=== PATIENT | female | born 1960 | race Asian ===

== ENCOUNTER 2016-11-28 06:09 | Day surgery (SDC) | payer BC ==
[2016-11-28] MEDS ORDERED: LACTATED RINGERS 1,000 ML IV ONE (07:06)
[2016-11-28] MEDS ORDERED: fentaNYL 100 MCG/2 ML VIAL IVP ONE (07:39)
[2016-11-28] MEDS ORDERED: MIDAZOLAM 2 MG/2 ML VIAL IVP ONE (07:39)
== END 2016-11-28 06:10 | disposition home or self-care (01) ==
PROC: 0DJD8ZZ Inspection of Lower Intestinal Tract, Via Natural or Artificial Opening Endoscopic (ICD-10-PCS; principal; 2016-11-28 07:30)
DX: Z12.11 Encounter for screening for malignant neoplasm of colon (principal); K64.4 Residual hemorrhoidal skin tags; K57.30 Diverticulosis of large intestine without perforation or abscess without bleeding; K64.8 Other hemorrhoids; E11.9 Type 2 diabetes mellitus without complications; I10 Essential (primary) hypertension; G47.30 Sleep apnea, unspecified; Z80.3 Family history of malignant neoplasm of breast; Z82.49 Family history of ischemic heart disease and other diseases of the circulatory system; Z90.710 Acquired absence of both cervix and uterus
CPT/HCPCS: 45378; J7120

== ENCOUNTER 2017-10-06 11:15 | Outpatient (CLI) | payer OTHER | END 2017-10-06 11:16 | disposition home or self-care (01) | LOC: SC 11:15 | PROVIDERS: ATTEND Internal Medicine Pulmonary Disease | DX: G47.30 Sleep apnea, unspecified (principal); G47.10 Hypersomnia, unspecified; R06.83 Snoring; G47.8 Other sleep disorders | CPT/HCPCS: 99203; 99212 ==

== ENCOUNTER 2017-12-22 11:45 | Outpatient (CLI) | payer OTHER | END 2017-12-22 11:46 | LOC: LAB.WCP 11:45 | PROVIDERS: ATTEND Physician Assistant | DX: N30.00 Acute cystitis without hematuria (principal) | CPT/HCPCS: 87086; 87181 ==

== ENCOUNTER 2017-12-26 21:38 | Outpatient (CLI) | payer OTHER | END 2017-12-26 21:39 | disposition home or self-care (01) | LOC: SC 21:38 | PROVIDERS: ATTEND Internal Medicine Pulmonary Disease | DX: G47.33 Obstructive sleep apnea (adult) (pediatric) (principal); G47.61 Periodic limb movement disorder | CPT/HCPCS: 95810 ==

== ENCOUNTER 2018-01-12 15:13 | Outpatient (CLI) | payer OTHER | END 2018-01-12 15:14 | disposition home or self-care (01) | LOC: SC 15:13 | PROVIDERS: ATTEND Internal Medicine Pulmonary Disease | DX: G47.33 Obstructive sleep apnea (adult) (pediatric) (principal) | CPT/HCPCS: 99212; 99213 ==

== ENCOUNTER 2018-05-28 10:19 | Outpatient (CLI) | payer OTHER | END 2018-05-28 10:20 | disposition home or self-care (01) | LOC: SC 10:19 | PROVIDERS: ATTEND Nurse Practitioner Family | DX: G47.33 Obstructive sleep apnea (adult) (pediatric) (principal) | CPT/HCPCS: 99212; 99214 ==

== ENCOUNTER 2019-09-29 08:00 | Outpatient (CLI) | payer OTHER ==
[2019-09-29 12:10] LABS: BASOPHILS # (AUTO) 0.1 10^3/uL (0.0-0.1); BASOPHILS % (AUTO) 0.7 %; EOSINOPHILS # (AUTO) 0.3 10^3/uL (0.0-0.7); EOSINOPHILS % (AUTO) 3.7 %; LYMPHOCYTES # (AUTO) 2.3 10^3/uL (1.5-3.5); LYMPHOCYTES % (AUTO) 25.8 %; MEAN CORPUSCULAR HEMOGLOBIN 27.2 pg (27.0-31.0); MEAN CORPUSCULAR HGB CONC 30.5 g/dL (32.0-36.0); MEAN CORPUSCULAR VOLUME 89.1 fL (81.0-99.0); MEAN PLATELET VOLUME 10.1 fL (7.9-10.8); MONOCYTES # (AUTO) 0.6 10^3/uL (0.0-1.0); MONOCYTES % (AUTO) 6.9 %; NEUTROPHILS # (AUTO) 5.5 10^3/uL (1.5-6.6); NEUTROPHILS % (AUTO) 62.6 %; PLT - PLATELET COUNT 344 10^3/uL (130-450); RED BLOOD COUNT 5.52 10^6/uL (4.20-5.40); WHITE BLOOD COUNT 8.9 x10^3/uL (4.8-10.8)
[2019-09-29 12:32] LABS: ALBUMIN 4.2 g/dL (3.2-5.5); ALKALINE PHOSPHATASE 87 IU/L (42-121); ALT ALANINE AMINOTRANSFERASE 36 IU/L (10-60); AST ASPARTATE AMINOTRANSFERASE 26 IU/L (10-42); BILIRUBIN,TOTAL 0.5 mg/dL (0.2-1.0); BUN - BLOOD UREA NITROGEN 21 mg/dL (6-20); CALCIUM 9.2 mg/dL (8.5-10.3); CARBON DIOXIDE - CO2 24 mmol/L (21-32); CHLORIDE 105 mmol/L (101-111); CHOL/HDL RATIO 3.7 (<4.4); CHOLESTEROL 230 mg/dL; CREATININE 0.6 mg/dL (0.4-1.0); GFR - MDRD 103 (>89); GLUCOSE 106 mg/dL (70-100); HDL CHOLESTEROL 62 mg/dL; LDL CHOLESTEROL,CALCULATED 144 mg/dL; LDL/HDL RATIO 2.3 (<4.4); SODIUM 139 mmol/L (135-145); TOTAL PROTEIN 8.3 g/dL (6.7-8.2); VLDL CHOLESTEROL 24 mg/dL
[2019-09-29 12:51] LABS: HB2 TOTAL 15.6 g/dL; HEMOGLOBIN A1C 0.73 g/dL; HEMOGLOBIN A1C % 6.4 % (4.6-6.2)
== END 2019-09-29 23:59 | disposition home or self-care (01) ==
LOC: LAB.WCP 08:00
PROVIDERS: ATTEND Nurse Practitioner Family
DX: E78.5 Hyperlipidemia, unspecified (principal); I10 Essential (primary) hypertension; R73.9 Hyperglycemia, unspecified
CPT/HCPCS: 36415; 80053; 80061; 83036; 83721; 84443; 85025

== ENCOUNTER 2019-12-28 08:07 | Outpatient (CLI) | payer OTHER ==
[2019-12-28 14:10] LABS: HB2 TOTAL 14.4 g/dL; HEMOGLOBIN A1C 0.62 g/dL; HEMOGLOBIN A1C % 6.1 % (4.6-6.2)
[2019-12-28 14:17] LABS: ALKALINE PHOSPHATASE 82 IU/L (42-121); ALT ALANINE AMINOTRANSFERASE 43 IU/L (10-60); AST ASPARTATE AMINOTRANSFERASE 26 IU/L (10-42); BILIRUBIN,TOTAL 0.8 mg/dL (0.2-1.0); BUN - BLOOD UREA NITROGEN 23 mg/dL (6-20); CALCIUM 9.1 mg/dL (8.5-10.3); CARBON DIOXIDE - CO2 23 mmol/L (21-32); CHLORIDE 109 mmol/L (101-111); CHOL/HDL RATIO 3.6 (<4.4); CHOLESTEROL 235 mg/dL; CREATININE 0.6 mg/dL (0.4-1.0); GLUCOSE 117 mg/dL (70-100); HDL CHOLESTEROL 65 mg/dL; LDL CHOLESTEROL,CALCULATED 139 mg/dL; LDL/HDL RATIO 2.1 (<4.4); SODIUM 141 mmol/L (135-145); TOTAL PROTEIN 7.9 g/dL (6.7-8.2); VLDL CHOLESTEROL 31 mg/dL
== END 2019-12-28 23:59 | disposition home or self-care (01) ==
LOC: LAB.WCP 08:07
PROVIDERS: ATTEND Nurse Practitioner Family
DX: E78.5 Hyperlipidemia, unspecified (principal); R73.03 Prediabetes
CPT/HCPCS: 36415; 80053; 80061; 83036; 83721

== ENCOUNTER 2020-07-18 08:25 | Outpatient (CLI) | payer OTHER ==
[2020-07-18 12:05] LABS: CALCIUM 9.4 mg/dL (8.5-10.3); CREATININE 0.6 mg/dL (0.4-1.0)
[2020-07-18 14:11] LABS: HEMOGLOBIN A1c% 6.2 % (4.27-6.07)
== END 2020-07-18 08:26 | disposition home or self-care (01) ==
LOC: LAB.N 08:25
PROVIDERS: ATTEND Nurse Practitioner Family
DX: R73.03 Prediabetes (principal)
CPT/HCPCS: 36415; 80048; 83036

== ENCOUNTER 2021-01-15 08:00 | Outpatient (CLI) | payer OTHER ==
[2021-01-15 12:01] LABS: BASOPHILS # (AUTO) 0.1 10^3/uL (0.0-0.1); EOSINOPHILS # (AUTO) 0.3 10^3/uL (0.0-0.7); EOSINOPHILS % (AUTO) 3.9 %; HCT - HEMATOCRIT 44.4 % (37.0-47.0); LYMPHOCYTES % (AUTO) 26.1 %; MEAN CORPUSCULAR HEMOGLOBIN 28.3 pg (27.0-31.0); MEAN CORPUSCULAR HGB CONC 31.5 g/dL (32.0-36.0); MEAN CORPUSCULAR VOLUME 89.9 fL (81.0-99.0); MEAN PLATELET VOLUME 9.9 fL (7.9-10.8); MONOCYTES # (AUTO) 0.5 10^3/uL (0.0-1.0); MONOCYTES % (AUTO) 6.4 %; NEUTROPHILS # (AUTO) 4.8 10^3/uL (1.5-6.6); NEUTROPHILS % (AUTO) 62.3 %; PLT - PLATELET COUNT 304 10^3/uL (130-450); RED BLOOD COUNT 4.94 10^6/uL (4.20-5.40); RED CELL DISTRIBUTION WIDTH 14.1 % (12.0-15.0); WHITE BLOOD COUNT 7.7 x10^3/uL (4.8-10.8)
[2021-01-15 12:26] LABS: THYROID STIMULATING HORMONE 1.02 uIU/mL (0.34-5.60)
[2021-01-15 12:31] LABS: ESTIMATED AVERAGE GLUCOSE 131 mg/dL (70-100); HEMOGLOBIN A1c% 6.2 % (4.27-6.07)
[2021-01-15 12:32] LABS: ALBUMIN 4.2 g/dL (3.2-5.5); ALBUMIN/GLOBULIN RATIO 1.1 (1.0-2.2); ALKALINE PHOSPHATASE 93 IU/L (42-121); ALT ALANINE AMINOTRANSFERASE 27 IU/L (10-60); AST ASPARTATE AMINOTRANSFERASE 22 IU/L (10-42); BILIRUBIN,TOTAL 0.7 mg/dL (0.2-1.0); BUN - BLOOD UREA NITROGEN 17 mg/dL (6-20); CALCIUM 9.2 mg/dL (8.5-10.3); CARBON DIOXIDE - CO2 26 mmol/L (21-32); CHLORIDE 107 mmol/L (101-111); CHOL/HDL RATIO 3.9 (<4.4); CHOLESTEROL 261 mg/dL; CREATININE 0.6 mg/dL (0.4-1.0); GFR - MDRD 103 (>89); GLUCOSE 105 mg/dL (70-100); HDL CHOLESTEROL 67 mg/dL; LDL CHOLESTEROL,CALCULATED 170 mg/dL; LDL/HDL RATIO 2.5 (<4.4); POTASSIUM 3.8 mmol/L (3.5-5.0); SODIUM 143 mmol/L (135-145); TOTAL PROTEIN 7.9 g/dL (6.7-8.2); TRIGLYCERIDES 120 mg/dL; VLDL CHOLESTEROL 24 mg/dL
== END 2021-01-15 23:59 | disposition home or self-care (01) ==
LOC: LAB.WCP 08:00
PROVIDERS: ATTEND Nurse Practitioner Family
DX: R73.03 Prediabetes (principal); E78.5 Hyperlipidemia, unspecified; I10 Essential (primary) hypertension
CPT/HCPCS: 36415; 80053; 80061; 83036; 83721; 84443; 85025

== ENCOUNTER 2021-06-15 10:38 | Outpatient (CLI) | payer OTHER | END 2021-06-15 23:59 | disposition home or self-care (01) | LOC: LAB.N 10:38 | PROVIDERS: ATTEND Family Medicine | DX: R30.0 Dysuria (principal) | CPT/HCPCS: 87086; 87181 ==

== ENCOUNTER 2021-06-26 10:16 | Outpatient (CLI) | payer OTHER ==
--- NOTE | 2021-06-27 14:11 | Mammography Report ---
BILATERAL DIGITAL SCREENING MAMMOGRAM 3D/2D: 06/26/2021 CLINICAL: Routine screening. Comparison is made to exams dated: 04/01/2016 mammogram, 01/14/2014 mammogram, and 02/24/2015 mammogram - [facility]. The tissue of both breasts is heterogeneously dense. This may lower the sensitivity of mammography. There is a new round asymmetry in the right breast at 1 o'clock posterior depth. There is a new oval focal asymmetry in the left breast at 11 o'clock anterior depth. No other significant masses or calcifications are seen in either breast. IMPRESSION: INCOMPLETE: NEEDS ADDITIONAL IMAGING EVALUATION The new round asymmetry in the right breast at 1 o'clock posterior depth is indeterminate. A diagnos tic mammogram and ultrasound is recommended. The new oval focal asymmetry in the left breast at 11 o'clock anterior depth is indeterminate. A sue gnostic mammogram and ultrasound is recommended. This exam was interpreted at Station ID: [id number]. NOTE: For mammograms, a report in lay terms will be sent to the patient. Approximately 15% of breast malignancies will not be visualized mammographically. In the management of a palpable breast mass, a negative mammogram must not discourage biopsy of a clinically suspicious lesion. Electronically Signed By: Anastasiya alberts/:06/26/2021 12:05:49 ACR BI-RADS Category 0: Incomplete 3340F PARENCHYMAL PATTERN: (D) - The breast(s) demonstrate(s) heterogeneously dense fibroglandular parenchy ma. BI-RADS CATEGORY: (0) - 0 Mammo and [place] [id number] Immediate follow-up LATERALITY: (B)
== END 2021-06-26 10:17 | disposition home or self-care (01) ==
LOC: DI.N 10:16
DX: Z12.31 Encounter for screening mammogram for malignant neoplasm of breast (principal); R92.8 Other abnormal and inconclusive findings on diagnostic imaging of breast

== ENCOUNTER 2021-08-14 12:33 | Outpatient (CLI) | payer OTHER ==
--- NOTE | 2021-08-15 16:06 | Ultrasound Report ---
LIMITED ULTRASOUND OF LEFT BREAST AND AXILLA: 08/14/2021 CLINICAL: Patient returns today to evaluate an asymmetry in the left breast. Comparison is made to exams dated: 08/14/2021 mammogram, 06/26/2021 mammogram, 04/01/2016 mammogram, mammogram, and 01/14/2014 mammogram - [facility]. Color flow and real-time ultrasound of the left breast 11 o'clock, and axilla regions were performed. Mendez scale images of the real-time examination were reviewed. There is a 0.9 cm x 0.8 cm x 0.5 cm irregular mass in the left breast at 11 o'clock anterior depth 2 cm from the nipple. This correlates with mammography findings. Color flow imaging demonstrates that there is an adjacent vascularity. No significant abnormalities were seen sonographically in the left axilla. IMPRESSION: SUSPICIOUS OF MALIGNANCY The 0.9 cm x 0.8 cm x 0.5 cm irregular mass in the left breast is at a moderate suspicion for maligna ncy. An ultrasound guided biopsy is recommended. Exam findings were discussed with the patient by Dr. Rojas. This exam was interpreted at Station ID: [id number]. Electronically Signed By: Deep Garcia M.D. slc/:08/14/2021 14:27:08 Ultrasound BI-RADS: 4b Moderate suspicion of malignancy BI-RADS CATEGORY: (4b) - Mod Susp None [id number] Immediate follow-up LATERALITY: ()
--- NOTE | 2021-08-15 16:06 | Mammography Report ---
BILATERAL DIGITAL DIAGNOSTIC MAMMOGRAM 3D/2D: 08/14/2021 CLINICAL: Patient returns today to evaluate a focal asymmetry in the right breast. Patient returns to day to evaluate a focal asymmetry in the left breast. Comparison is made to exams dated: 06/26/2021 mammogram, 04/01/2016 mammogram, 02/24/2015 mammogram, a nd 01/14/2014 mammogram - [facility]. There are scattered fibroglandular elements i n both breasts. There is a new 0.7 cm round asymmetry in the right breast at 1 o'clock posterior depth. There is a new 0.5 cm oval focal asymmetry in the left breast at 11 o'clock anterior depth. No other significant masses or calcifications are seen in either breast. IMPRESSION: INCOMPLETE: NEEDS ADDITIONAL IMAGING EVALUATION The 0.7 cm round asymmetry in the right breast at 1 o'clock posterior depth resembles a cyst and is i ndeterminate. The 0.5 cm oval focal asymmetry in the left breast at 11 o'clock anterior depth is indeterminate. A targeted ultrasound is recommended and will immediately follow. This exam was interpreted at Station ID: [id number]. NOTE: For mammograms, a report in lay terms will be sent to the patient. Approximately 15% of breast malignancies will not be visualized mammographically. In the management of a palpable breast mass, a negative mammogram must not discourage biopsy of a clinically suspicious lesion. Electronically Signed By: Deep Garcia M.D. slc/:08/14/2021 13:43:09 ACR BI-RADS Category 0: Incomplete 3340F PARENCHYMAL PATTERN: (A) - The breast(s) demonstrate(s) scattered fibroglandular densities. BI-RADS CATEGORY: (0) - 0 Ultrasound [id number] Immediate follow-up LATERALITY: (B)
--- NOTE | 2021-08-15 16:06 | Ultrasound Report ---
LIMITED ULTRASOUND OF RIGHT BREAST AND AXILLA: 08/14/2021 CLINICAL: Patient returns today to evaluate a focal asymmetry in the right breast. Comparison is made to exams dated: 08/14/2021 mammogram, 06/26/2021 mammogram, 04/01/2016 mammogram, mammogram, and 01/14/2014 mammogram - [facility]. Color flow and real-time ultrasound of the right breast 1 o'clock, and axilla regions were performed. Mendez scale images of the real-time examination were reviewed. There is a 0.8 cm x 0.7 cm x 0.4 cm oval mass with a circumscribed margin in the right breast at 1 o' clock middle depth 5 cm from the nipple. This oval mass is hypoechoic. This correlates with mammogr aphy findings. Color flow imaging demonstrates that there is an adjacent vascularity. No significant abnormalities were seen sonographically in the right axilla. IMPRESSION: SUSPICIOUS OF MALIGNANCY The 0.8 cm x 0.7 cm x 0.4 cm oval mass in the right breast is at a low suspicion for malignancy. An ultrasound guided biopsy is recommended. Exam findings were discussed with the patient. After reviewing the mammograms again, Dr. Garcia would like to proceed with biopsy rather than imaging follow-up as the mass appears new. This exam was interpreted at Station ID: [id number]. Electronically Signed By: Deep Garcia M.D. slc/:08/14/2021 18:03:14 Ultrasound BI-RADS: 4a Low suspicion for malignancy BI-RADS CATEGORY: (4a) - Low Susp None [id number] Immediate follow-up LATERALITY: ()
== END 2021-08-14 12:34 | disposition home or self-care (01) ==
LOC: DI 12:33
PROVIDERS: ATTEND Nurse Practitioner Family
DX: R92.8 Other abnormal and inconclusive findings on diagnostic imaging of breast (principal)

== ENCOUNTER 2021-08-22 09:37 | Outpatient (CLI) | payer OTHER ==
[2021-08-22 12:44] LABS: BASOPHILS # (AUTO) 0.1 10^3/uL (0.0-0.1); BASOPHILS % (AUTO) 0.9 %; EOSINOPHILS # (AUTO) 0.4 10^3/uL (0.0-0.7); EOSINOPHILS % (AUTO) 4.4 %; HCT - HEMATOCRIT 44.3 % (37.0-47.0); HGB - HEMOGLOBIN 14.1 g/dL (12.0-16.0); LYMPHOCYTES # (AUTO) 1.9 10^3/uL (1.5-3.5); LYMPHOCYTES % (AUTO) 23.4 %; MEAN CORPUSCULAR HEMOGLOBIN 28.7 pg (27.0-31.0); MEAN CORPUSCULAR HGB CONC 31.8 g/dL (32.0-36.0); MEAN PLATELET VOLUME 9.9 fL (7.9-10.8); MONOCYTES # (AUTO) 0.5 10^3/uL (0.0-1.0); NEUTROPHILS # (AUTO) 5.4 10^3/uL (1.5-6.6); NEUTROPHILS % (AUTO) 64.9 %; PLT - PLATELET COUNT 317 10^3/uL (130-450); RED BLOOD COUNT 4.92 10^6/uL (4.20-5.40); WHITE BLOOD COUNT 8.2 x10^3/uL (4.8-10.8)
[2021-08-22 12:50] LABS: BILIRUBIN,URINE NEGATIVE (NEGATIVE); GLUCOSE, URINE (UA) NEGATIVE (NEGATIVE); KETONES,URINE (UA) NEGATIVE (NEGATIVE); LEUKOCYTE ESTERASE, URINE TRACE (NEGATIVE); NITRITE,URINE NEGATIVE (NEGATIVE); OCCULT BLOOD,URINE SMALL (NEGATIVE); PROTEIN,URINE NEGATIVE (NEGATIVE); UROBILINOGEN,URINE 0.2 (NORMAL) E.U./dL (NORMAL)
[2021-08-22 13:02] LABS: ALBUMIN 3.9 g/dL (3.2-5.5); ALBUMIN/GLOBULIN RATIO 0.9 (1.0-2.2); BILIRUBIN,TOTAL 0.6 mg/dL (0.2-1.0); CREATININE 0.6 mg/dL (0.4-1.0); POTASSIUM 3.8 mmol/L (3.5-5.0); TOTAL PROTEIN 8.3 g/dL (6.7-8.2)
[2021-08-22 13:09] LABS: BACTERIA,URINE Rare /HPF (None Seen); CLARITY,URINE CLEAR (CLEAR); RBC,URINE 0-5 /HPF (0-5); SQUAMOUS EPITHELIAL CELL,UR MOD Squamous (<= Few); THYROID STIMULATING HORMONE 1.13 uIU/mL (0.34-5.60)
[2021-08-22 13:10] LABS: CRYSTALS,URINE 6-10 Calcium Oxalate /LPF
[2021-08-23 17:42] LABS: ESTIMATED AVERAGE GLUCOSE 137 mg/dL (70-100); HEMOGLOBIN A1c% 6.4 % (4.27-6.07)
== END 2021-08-22 23:59 | disposition home or self-care (01) ==
LOC: LAB.WCP 09:37
PROVIDERS: ATTEND Nurse Practitioner
DX: R53.83 Other fatigue (principal); R73.03 Prediabetes
CPT/HCPCS: 36415; 80053; 81001; 83036; 84443; 85025; 87086

== ENCOUNTER 2021-10-24 08:00 | Outpatient (CLI) | payer OTHER | END 2021-10-24 23:59 | LOC: LAB.N 08:00 | PROVIDERS: ATTEND Nurse Practitioner | DX: J32.8 Other chronic sinusitis (principal); Z20.822 Contact with and (suspected) exposure to COVID-19 ==

== ENCOUNTER 2022-06-27 00:42 | Emergency (ER) | payer OTHER ==
[2022-06-27] MEDS ORDERED: IPRATROPIUM/ALBUTEROL 3 ML NEB INH STA (01:08)
[2022-06-27 01:28] LABS: BASOPHILS # (AUTO) 0.1 10^3/uL (0.0-0.1); BASOPHILS % (AUTO) 0.5 %; EOSINOPHILS # (AUTO) 0.3 10^3/uL (0.0-0.7); HGB - HEMOGLOBIN 12.6 g/dL (12.0-16.0); LYMPHOCYTES # (AUTO) 1.2 10^3/uL (1.5-3.5); LYMPHOCYTES % (AUTO) 8.6 %; MEAN CORPUSCULAR HEMOGLOBIN 28.3 pg (27.0-31.0); MEAN CORPUSCULAR HGB CONC 31.5 g/dL (32.0-36.0); MEAN CORPUSCULAR VOLUME 89.9 fL (81.0-99.0); MEAN PLATELET VOLUME 9.4 fL (7.9-10.8); MONOCYTES # (AUTO) 1.2 10^3/uL (0.0-1.0); MONOCYTES % (AUTO) 8.6 %; NEUTROPHILS # (AUTO) 10.7 10^3/uL (1.5-6.6); NEUTROPHILS % (AUTO) 79.7 %; PLT - PLATELET COUNT 281 10^3/uL (130-450); RED BLOOD COUNT 4.45 10^6/uL (4.20-5.40); RED CELL DISTRIBUTION WIDTH 13.6 % (12.0-15.0); WHITE BLOOD COUNT 13.5 x10^3/uL (4.8-10.8)
[2022-06-27 01:41] LABS: ALBUMIN 3.8 g/dL (3.2-5.5); BILIRUBIN,TOTAL 0.2 mg/dL (0.2-1.0); CALCIUM 8.9 mg/dL (8.5-10.3); CREATININE 0.9 mg/dL (0.4-1.0); POTASSIUM 3.7 mmol/L (3.5-5.0); TOTAL PROTEIN 7.8 g/dL (6.7-8.2)
--- NOTE | 2022-06-27 01:45 | ED Physician Documentation ---
PD HPI DYSPNEA - Stated complaint Stated Complaint: SOA/COUGH/HIGH BP - Chief complaint Chief Complaint: Resp - History obtained from History obtained from: Patient - Additional information Additional information: Patient is a 61-year-old female with a history of hypertension presenting for evaluation of feeling short of breath, productive cough and nasal congestion for least 10 days. She was seen at the walk-in clinic on June 15 and reports having a swabs that she believes were for COVID and RSV which were both negative. She was given prescriptions for albuterol and steroids and her sympto ms have not improved. The instructions for the albuterol were to use twice a day. She is also recently had elevated blood pressure readings. When she was at the walk-in clinic her pressures were in the 230s. They did want her to be evaluated in the emergency department but she declined at that time. Tonight she also noted that her blood pressures have been above 200. She denies feeling chest pain. Her shortness of breath is triggered by her cough.Her cough is productive of light yellow sputum. She denies blood. She denies leg swelling or pain. No known fevers. Her is also ill with URI symptoms. No vomiting or diarrhea. She is on metoprolol and losartan and reports being compliant with her medications. 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 - Present Medications Home Medications: Ambulatory Orders Medication Instructions Recorded Confirmed Metoprolol Succinate 50 mg PO DAILY 11/28/16 06/27/22 Albuterol Sulf [Ventolin Hfa 1 - 2 puffs INH Q4HR PRN #1 each 06/27/22 Inhaler] Albuterol Sulfate [Proair 90 mcg INH PRN PRN 06/27/22 06/27/22 Digihaler] Benzonatate [Tessalon] 200 mg PO QID PRN #20 cap 06/27/22 Losartan Potassium 25 mg PO DAILY 06/27/22 06/27/22 Losartan [Cozaar] 50 mg PO DAILY #30 tablet 06/27/22 Sertraline [Zoloft] 100 mg PO DAILY 06/27/22 06/27/22 methylPREDNISolone [Medrol Dose 4 mg PO DAILY 06/27/22 06/27/22 Pack] - Allergies Allergies/Adverse Reactions: Allergies Allergy/AdvReac Type Severity Reaction Status Date / Time No Known Drug Allergies Allergy Verified 06/27/22 01:00 PD ED PE NORMAL - General General: Alert and oriented X 3, No acute distress, Well developed/nourished - HEENT HEENT: Atraumatic, Moist mucous membranes - Neck Neck: Supple, no meningeal sign - Cardiac Cardiac: RRR, Strong equal pulses - Respiratory Respiratory: No respiratory distress, Other (Cough triggered by taking deep breaths, diminished breath sounds at the bases; Mild wheeze) - Abdomen Abdomen: Soft, Non tender - Derm Derm: Warm and dry - Extremities Extremities: No edema, No calf tenderness / cord - Neuro Neuro: Normal speech Results - Vitals Vitals: Vital Signs - 24 hr 06/27/22 06/27/22 06/27/22 00:50 01:25 01:59 Temperature 36.4 C L Heart Rate 89 84 82 Respiratory 20 22 22 Rate Blood Pressure 251/107 H 225/93 H O2 Saturation 98 98 06/27/22 06/27/22 06/27/22 02:08 02:13 02:17 Temperature Heart Rate 90 85 83 Respiratory 24 24 24 Rate Blood Pressure 257/103 H 183/84 H 194/84 H O2 Saturation 96 96 96 06/27/22 06/27/22 06/27/22 02:22 02:39 02:55 Temperature 37.6 C Heart Rate 83 82 83 Respiratory 24 21 19 Rate Blood Pressure 195/81 H 191/86 H 180/80 H O2 Saturation 96 97 97 Oxygen O2 Source Room air - EKG (time done) 0118 Rate: Rate (enter#) (82) Rhythm: NSR Navarro: Normal Ischemia: No: ST elevation c/w ischemia - Labs Labs: Laboratory Tests 06/27/22 06/27/22 06/27/22 00:15 01:15 01:18 WBC 13.5 H RBC 4.45 Hgb 12.6 Hct 40.0 MCV 89.9 MCH 28.3 MCHC 31.5 L RDW 13.6 Plt Count 281 MPV 9.4 Neut # (Auto) 10.7 H Lymph # (Auto) 1.2 L [place] # (Auto) 1.2 H Eos # (Auto) 0.3 Baso # (Auto) 0.1 Absolute Nucleated RBC 0.00 Nucleated RBC % 0.0 Sodium Potassium Chloride Carbon Dioxide Anion Gap BUN Creatinine Estimated GFR (MDRD) Glucose Calcium Total Bilirubin AST ALT Alkaline Phosphatase B-Natriuretic Peptide 63 Total Protein Albumin Globulin Albumin/Globulin Ratio Nasal Adenovirus (PCR) NOT DETECTED Nasal B. parapertussis DNA (PCR) NOT DETECTED Nasal Coronavir 229E PCR NOT DETECTED Nasal Coronavir HKU1 PCR NOT DETECTED Nasal Coronavir NL63 PCR NOT DETECTED Nasal Coronavir OC43 PCR NOT DETECTED Nasal Enterovir/Rhinovir PCR NOT DETECTED Nasal Influenza B PCR NOT DETECTED Nasal Influenza A PCR NOT DETECTED Nasal Parainfluen 1 PCR NOT DETECTED Nasal Parainfluen 2 PCR NOT DETECTED Nasal Parainfluen 3 PCR NOT DETECTED Nasal Parainfluen 4 PCR NOT DETECTED Nasal RSV (PCR) NOT DETECTED Nasal B.pertussis DNA PCR NOT DETECTED Nasal C.pneumoniae (PCR) NOT DETECTED Yinka Human Metapneumo PCR NOT DETECTED Nasal M.pneumoniae (PCR) NOT DETECTED Nasal SARS-CoV-2 (PCR) DETECTED A 06/27/22 01:18 WBC RBC Hgb Hct MCV MCH MCHC RDW Plt Count MPV Neut # (Auto) Lymph # (Auto) [place] # (Auto) Eos # (Auto) Baso # (Auto) Absolute Nucleated RBC Nucleated RBC % Sodium 142 Potassium 3.7 Chloride 104 Carbon Dioxide 26 Anion Gap 12.0 BUN 23 H Creatinine 0.9 Estimated GFR (MDRD) 64 L Glucose 146 H Calcium 8.9 Total Bilirubin 0.2 AST 22 ALT 20 Alkaline Phosphatase 86 B-Natriuretic Peptide Total Protein 7.8 Albumin 3.8 Globulin 4.0 Albumin/Globulin Ratio 1.0 Nasal Adenovirus (PCR) Nasal B. parapertussis DNA (PCR) Nasal Coronavir 229E PCR Nasal Coronavir HKU1 PCR Nasal Coronavir NL63 PCR Nasal Coronavir OC43 PCR Nasal Enterovir/Rhinovir PCR Nasal Influenza B PCR Nasal Influenza A PCR Nasal Parainfluen 1 PCR Nasal Parainfluen 2 PCR Nasal Parainfluen 3 PCR Nasal Parainfluen 4 PCR Nasal RSV (PCR) Nasal B.pertussis DNA PCR Nasal C.pneumoniae (PCR) Yinka Human Metapneumo PCR Nasal M.pneumoniae (PCR) Nasal SARS-CoV-2 (PCR) PD MEDICAL DECISION MAKING - ED course Complexity details: reviewed results, re-evaluated patient, d/w patient, d/w family ED course: Patient with shortness of breath and URI symptoms along with uncontrolled hypertension.Patient does have diminished breath sounds and mild wheezing on initial exam which improved after neb treatment. Her labs were reviewed and EKG is a sinus rhythm. No chest pain to suggest ACS Or aortic dissection. Patient's respiratory panel is positive for COVID-19. I believe this is the primary cause for her symptoms today. She clinically does not appear to be in fluid overload. No pneumonia seen on x-ray. However her blood pressure has been significantly elevated over the last several weeks.She did have improvement with 1 dose of labetalol. I will also increase her losartan at home. Patient was advised on need for follow-up with primary care doctor for recheck of her blood pressure. She is advised on concerning symptoms to return for. Departure - Departure Disposition: Home, Self Care Clinical Impression: COVID-19, Uncontrolled hypertension Condition: Good Instructions: ED Hypertension Conf Out Of Control, ED Viral Syndrome Prescriptions: Albuterol Sulf [Ventolin Hfa Inhaler] 1 - 2 puffs INH Q4HR PRN #1 each PRN Reason: Shortness Of Air/Wheezing Losartan [Cozaar] 50 mg PO DAILY #30 tablet Benzonatate [Tessalon] 200 mg PO QID PRN #20 cap PRN Reason: Cough Comments: Your blood pressure has been significantly elevated. At this time I recommend increasing your losartan from 25 mg to 50 mg daily. I would also recommend you making a follow-up appointment with your primary care doctor in the next week for blood pressure recheck. If you are not able to Get an appointment there then I would consider the walk-in clinic. You have also tested positive for COVID-19.It is unclear as to exactly when your symptoms started but I would recommend quarantine for the next 5 days. I have sent a refill of albuterol, cough medication and a new prescription for losartan to [facility] in [place] that is it is the only pharmacy in the area open on . Please return to the emergency department with any concerning symptoms. Forms: Activity restrictions Discharge Date/Time: 06/27/22 02:55
[2022-06-27] MEDS ORDERED: LABETALOL 20 MG/4 ML SYRINGE IVP STA (02:01)
--- NOTE | 2022-06-27 02:05 | XRAY Report ---
PROCEDURE: Chest 1 View X-Ray INDICATIONS: SOA TECHNIQUE: One view of the chest was acquired. COMPARISON: None. FINDINGS: Surgical changes and devices: None. Lungs and pleura: There is pulmonary vascular prominence consistent with pulmonary edema. No pleural effusions or pneumothorax. Mediastinum: Mediastinal contours appear normal. Heart size is enlarged. Bones and chest wall: No suspicious bony lesions. Overlying soft tissues appear unremarkable. IMPRESSION: 1. Pulmonary edema and cardiomegaly compatible with congestive heart failure. Reviewed by: Dimas Aguilar MD on 06/27/2022 2:03 AM PST Approved by: Dimas Aguilar MD on 06/27/2022 2:[address] [facility] Station ID: [id number]
[2022-06-27 02:20] LABS: CORONAVIRUS 229E-RESP PCR NOT DETECTED; CORONAVIRUS HKU1-RESP PCR NOT DETECTED; CORONAVIRUS NL63-RESP PCR NOT DETECTED; CORONAVIRUS OC43-RESP PCR NOT DETECTED
[2022-06-27 02:21] LABS: B. PARAPERTUSSIS- RESP PCR PAN NOT DETECTED; B. PERTUSSIS- RESP PCR PANEL NOT DETECTED; C. PNEUMONIAE- RESP PCR PANEL NOT DETECTED; HUMAN METAPNEUMOVIRUS NOT DETECTED; INFLUENZA A- RESP PCR PANEL NOT DETECTED; INFLUENZA B - RESP PCR PANEL NOT DETECTED; M. PNEUMONIAE- RESP PCR PANEL NOT DETECTED; PARAINFLUENZA VIRUS 1 NOT DETECTED; PARAINFLUENZA VIRUS 2 NOT DETECTED; PARAINFLUENZA VIRUS 3 NOT DETECTED; PARAINFLUENZA VIRUS 4 NOT DETECTED; RHINOVIRUS/ENTEROVIRUS NOT DETECTED; RSV- RESP PCR PANEL NOT DETECTED; SARS-CoV-2 -RESP PCR PANEL DETECTED
[2022-06-27] MEDS ORDERED: BENZONATATE 100 MG CAPSULE PO STA (02:47)
[2022-06-27 02:56] VITALS: BP 180/80
== END 2022-06-27 02:55 | disposition home or self-care (01) ==
LOC: ED 00:42
DX: U07.1 COVID-19 (principal); I10 Essential (primary) hypertension
CPT/HCPCS: 36415; 71045; 80053; 83880; 85025; 87633; 93005; 94640; 96374; 99284; A9270

== ENCOUNTER 2022-07-05 04:50 | Emergency (ER) | payer OTHER ==
--- NOTE | 2022-07-05 05:17 | ED Physician Documentation ---
History of Present Illness - Stated complaint Stated Complaint: COUGH, R RIB PX - Chief complaint Chief Complaint: Resp - History obtained from History obtained from: Patient - History of Present Illness Timing: Today Pain level now: 8 Improved by: rest Worsened by: movement, deep inspiration, but most severe exacerbation is with coughing - Additonal information Additional information: seen in walk-in clinic 06/15 for URI symptoms, had negative COVID test and patient thinks she also was told negative for RSV. She was prescribed steroids and albuterol MDI. She was T+R from this ED 06/27 for ongoing symptoms (cough, chest congestion, myalgias, headache) and was COVID positive . She was again prescribed an albuterol MDI as well as tessalon perles and cozaar (secondary c/o of uncontrolled HTN). Tonight she presents for sudden onset right sided chest pain, onset when she coughed and associated with a popping sensation, has point-tenderness right anterolateral chest wall since then. Review of Systems Constitutional: denies: Fever, Chills, Sweats Cardiac: reports: Chest pain / pressure (chest wall pain). denies: Palpitations Respiratory: reports: Cough. 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: Hysterectomy - Present Medications Home Medications: Ambulatory Orders Medication Instructions Recorded Confirmed Metoprolol Succinate 50 mg PO DAILY 11/28/16 06/27/22 Albuterol Sulf [Ventolin Hfa 1 - 2 puffs INH Q4HR PRN #1 each 06/27/22 Inhaler] Albuterol Sulfate [Proair 90 mcg INH PRN PRN 06/27/22 06/27/22 Digihaler] Benzonatate [Tessalon] 200 mg PO QID PRN #20 cap 06/27/22 Losartan Potassium 25 mg PO DAILY 06/27/22 06/27/22 Losartan [Cozaar] 50 mg PO DAILY #30 tablet 06/27/22 Sertraline [Zoloft] 100 mg PO DAILY 06/27/22 06/27/22 methylPREDNISolone [Medrol Dose 4 mg PO DAILY 06/27/22 06/27/22 Pack] oxyCODONE [Roxicodone] 5 - 10 mg PO Q6H PRN #20 tablet 07/05/22 - Allergies Allergies/Adverse Reactions: Allergies Allergy/AdvReac Type Severity Reaction Status Date / Time No Known Drug Allergies Allergy Verified 06/27/22 01:00 PD ED PE NORMAL - Vitals Vital signs reviewed: Yes - General General: Alert and oriented X 3, No acute distress (NAD at rest but obvious painful distress with coughing, less so (but noticably) with movement involving thorax as well as with deep inspiration), Well developed/nourished - Cardiac Cardiac: RRR, No murmur - Respiratory Respiratory: No respiratory distress, Clear bilaterally - Abdomen Abdomen: Soft, Non tender PD ED PE EXPANDED - Cardiac Cardiac: Chest wall TTP (right anterolateral chest wall TTP without brusing or obvious deformity) Results - Vitals Vitals: Vital Signs - 24 hr 07/05/22 07/05/22 04:53 08:07 Temperature 36.7 C Heart Rate 63 56 L Respiratory 16 18 Rate Blood Pressure 188/90 H 195/95 H O2 Saturation 98 97 Oxygen O2 Source Room air - Rads (name of study) right ribs xrays with PA chest Radiology: Prelim report reviewed, See rad report PD MEDICAL DECISION MAKING - ED course Complexity details: reviewed results, re-evaluated patient, considered d ifferential, d/w patient ED course: rib/chest xrays show fracture of right 8th rib, no other evidence of fracture, no pneumothorax. she is given 5mg oxycodone for pain and cough suppression; on reevaluation, she says this has brought little relief and thus given second dose 5mg PO oxycodone. Results reviewed with patient, rx for oxycodone e-prescribed. Return precautions reviewed as well I am prescribing a short course of short-acting opioid pain medication for this patient. 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 I have discussed that the opioids are for short term therapy only, and will not be refilled from the ED Departure - Departure Disposition: 01 Home, Self Care Clinical Impression: Right rib fracture Qualifiers: Encounter type: initial encounter Rib fracture type: single rib Fracture type: closed Qualified Code(s): S22.31XA - Fracture of one rib, right side, initial encounter for closed fracture Condition: Good Instructions: ED Fx Rib Follow-Up: Donte Dominguez MD [Primary Care Provider] - Within 1 week Prescriptions: oxyCODONE [Roxicodone] 5 - 10 mg PO Q6H PRN #20 tablet PRN Reason: Pain Comments: The xrays show a fracture of the right eighth rib. A prescription for oxycodone (narcotic pain medication) has been electronically submitted to [facility] pharmacy in [place]. This medication should help with the pain and it also has a cough-suppressant property. You can also take lhbd-cng-ohmvgxc medications to help with the symptoms. Guaifenesin is an expectorant (loosens phelgm, making it easier to cough up the mucous in your chest) and dextromethorphan is a cough suppressant. Many products have this combination such as Mucinex DM. You can also take acetaminophen (Tylenol) or ibuprofen (Advil, Motrin) for the pain in addition to the oxycodone. I am prescribing a short course of narcotic pain medication for you. These are potentially dangerous and addictive medications that should be used carefully. These medications may constipate you. Take an urui-wbw-koozzno stool softener (docusate) twice daily with plenty of water while taking these medications. If you go 24 hours without a bowel movement, take uang-lcp-avzwsgr miralax, per package instructions. Do not drink or drive while taking these medications. If you received narcotic or sedating medications while in the emergency department, do not drive for 24 hours. Store this medication in a safe, secure place and out of reach of children. It is a violation of federal law to give or sell this medication to another person or to use in a manner other than prescribed. The ED will not refill narcotic prescriptions, including prescriptions lost or stolen. To dispose of unwanted medications: 1. [facility] at [address] in [place] has a medication drop box. They accept prescription medications (in pill form) Friday through Friday 9:00 a.m. to 5:00 p.m. 2. The [facility] [employer] accepts prescription medications (in pill form only) for disposal year round. Call for more information. 3. Contact the [facility] for the next [facility] sponsored prescription drug collection event. , [phone], or [phone]; Forms: Activity restrictions Discharge Date/Time: 07/05/22 08:08
[2022-07-05] MEDS ORDERED: oxyCODONE 5 MG TABLET PO STA ×2 (05:36→07:27)
[2022-07-05 08:08] VITALS: BP 195/95
--- NOTE | 2022-07-05 08:21 | XRAY Report ---
PROCEDURE: Ribs w/PA Chest RT INDICATIONS: right chest wall pain associated with coughing TECHNIQUE: 2 views of the right ribs were acquired, along with a single view chest. COMPARISON: Chest radiograph dated 06/27/2022 FINDINGS: Surgical changes and devices: None. Bones and chest wall: There is suggestion of subtle cortical irregularity involving posterior lateral right eighth rib and may indicate a subtle minimally displaced fracture in this area. No other fract ure is seen. No suspicious bony lesions. Overlying soft tissues appear unremarkable. Lungs and pleura: No pleural effusions or pneumothorax. Lungs appear clear. Mediastinum: Mediastinal contours appear normal. Heart size is enlarged. IMPRESSION: Suggestion of a subtle minimally displaced right posterior lateral eighth rib fracture. No acute card iopulmonary pathology. No discrepancies. Reviewed by: Geovanni Galeana MD on 07/05/2022 8:19 AM PST Approved by: Geovanni Galeana MD on 07/05/2022 8:19 AM PST Station ID: [id number]
== END 2022-07-05 08:08 | disposition home or self-care (01) ==
LOC: ED 04:50
DX: S22.31XA Fracture of one rib, right side, initial encounter for closed fracture (principal); X58.XXXA Exposure to other specified factors, initial encounter; Y93.89 Activity, other specified
CPT/HCPCS: 71101; 99283; A9270

== ENCOUNTER 2022-07-10 17:37 | Outpatient (CLI) | payer OTHER ==
--- NOTE | 2022-07-11 10:50 | XRAY Report ---
PROCEDURE: Chest 2 View X-Ray INDICATIONS: COUGH TECHNIQUE: 2 views of the chest were acquired. COMPARISON: 06/27/2022 FINDINGS: Surgical changes and devices: None. Lungs and pleura: Small right pleural effusion has developed since the prior study. No dense consolid ations. There is thickening of the oblique fissures. Diffuse interstitial thickening is also present though less extensive compared to prior. Mild perihilar bronchial wall thickening. Mediastinum: Mild cardiomegaly. Stable aortic contour. Prominent right hilar region, chronic. Bones and chest wall: No suspicious bony abnormalities. Soft tissues appear unremarkable. IMPRESSION: 1. Small right pleural effusion may be result of residual pulmonary edema as was present previously. 2. Diffuse interstitial thickening as well as bronchial wall thickening may indicate bronchitis and/o r residual interstitial edema. 3. Stable cardiomegaly. Reviewed by: Anastasiya Brown MD on 07/11/2022 10:48 AM PST Approved by: Anastasiya Brown MD on 07/11/2022 10:48 AM PST Station ID: [id number]
--- NOTE | 2022-07-11 10:54 | XRAY Report ---
PROCEDURE: Ribs w/PA Chest RT INDICATIONS: COUGH TECHNIQUE: 3 views of the right ribs were acquired, along with a single view chest. COMPARISON: 07/05/2022 FINDINGS: Surgical changes and devices: None. Bones and chest wall: Mildly displaced right eighth posterior rib fracture is better seen on the curr ent study, suggested previously.. No suspicious bony lesions. Overlying soft tissues appear unremar kable. Lungs and pleura: Small right pleural effusion, diffuse interstitial prominence, bilateral perihilar bronchial wall thickening. This. Mediastinum: Mediastinal contours appear stable. Heart size is mildly enlarged. IMPRESSION: 1. Confirmation of right posterior eighth rib fracture, now mildly displaced. 2. Small right pleural effusion, interstitial prominence and bronchial wall thickening. This may channing radha interstitial edema, bronchitis, or the effusion may be result of rib fracture. Reviewed by: Anastasiya Brown MD on 07/11/2022 10:52 AM PST Approved by: Anastasiya Brown MD on 07/11/2022 10:52 AM PST Station ID: [id number]
== END 2022-07-10 23:59 | disposition home or self-care (01) ==
LOC: DI.N 17:37
PROVIDERS: ATTEND Physician Assistant
DX: S22.31XA Fracture of one rib, right side, initial encounter for closed fracture (principal); J90 Pleural effusion, not elsewhere classified; R91.8 Other nonspecific abnormal finding of lung field

== ENCOUNTER 2023-06-11 01:37 | Emergency (ER) | payer OTHER ==
--- NOTE | 2023-06-11 02:07 | ED Physician Documentation ---
History of Present Illness - Stated complaint Stated Complaint: NAUSEA/BACK/LEG PX - Chief complaint Chief Complaint: Back Pain - History obtained from History obtained from: Patient - Additonal information Additional information: HPI from patient. Patient complains of right lower quadrant abdominal pain, right flank pain, and midline to right lower back pain. Initially, the the pain was located in the mid to right lower back starting approximately 1 week ago, gradual onset and without an inciting event. She denies injury. She saw her primary care provider last week for this pain. It sounds like she is describing having lumbar x-rays performed (she says it was a chest x-ray but she is pointing to her lower back, and her complaint at the time of evaluation by her PMD was low back pain); patient says that there was nothing remarkable in these x-rays. Primary care provider prescribed her tramadol for the pain, but this is not providing adequate relief. Over the past several days, the pain has spread to involve her right flank and right lower abdomen. She also has noticed, over the last 1 to 2 days, paresthesias ("[id number]"), episodically, of her bilateral lower extremities. She denies weakness. She denies urinary incontinence, bowel incontinence. She has not had any significant back pain in the past. She is also complaining of nausea but no vomiting. Review of Systems Constitutional: denies: Fever, Chills, Fatigue, Sweats Cardiac: reports: Reviewed and negative Respiratory: reports: Reviewed and negative GI: reports: Abdominal Pain, Nausea. denies: Abdominal Swelling, Vomiting, Constipation, Diarrhea : denies: Dysuria Musculoskeletal: reports: Back pain. denies: Neck pain, Extremity pain, Pain with weight bearing Neurologic: reports: Numbness. 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 - Present Medications Home Medications: Ambulatory Orders Medication Instructions Recorded Confirmed Metoprolol Succinate 50 mg PO DAILY 11/28/16 06/27/22 Albuterol Sulf [Ventolin Hfa 1 - 2 puffs INH Q4HR PRN #1 each 06/27/22 Inhaler] Albuterol Sulfate [Proair 90 mcg INH PRN PRN 06/27/22 06/27/22 Digihaler] Benzonatate [Tessalon] 200 mg PO QID PRN #20 cap 06/27/22 Losartan Potassium 25 mg PO DAILY 06/27/22 06/27/22 Losartan [Cozaar] 50 mg PO DAILY #30 tablet 06/27/22 Sertraline [Zoloft] 100 mg PO DAILY 06/27/22 06/27/22 methylPREDNISolone [Medrol Dose 4 mg PO DAILY 06/27/22 06/27/22 Pack] oxyCODONE [Roxicodone] 5 - 10 mg PO Q6H PRN #20 tablet 07/05/22 Ondansetron Odt [Zofran Odt] 4 mg TL Q6H PRN #20 tablet 06/11/23 Oxycodone HCl/Acetaminophen 1 - 2 each PO Q6H PRN #20 tablet 06/11/23 [Percocet 5-325 mg Tablet] - Allergies Allergies/Adverse Reactions: Allergies Allergy/AdvReac Type Severity Reaction Status Date / Time No Known Drug Allergies Allergy Verified 06/11/23 05:19 - Social History Does the pt smoke?: No Smoking Status: Never smoker Does the pt drink ETOH?: No Does the pt have substance abuse?: No - Immunizations Immunizations are current?: Yes PD ED PE NORMAL - Vitals Vital signs reviewed: Yes - General General: Alert and oriented X 3, No acute distress, Well developed/nourished - Cardiac Cardiac: RRR, No murmur - Respiratory Respiratory: No respiratory distress, Clear bilaterally - Abdomen Abdomen: Soft, Non distended, Other (mild TTP RLQ and right flank without rebound or guarding) - Back Back: No CVA TTP, No spinal TTP - Derm Derm: No rash - Extremities Extremities: No edema - Neuro Neuro: Alert and oriented X 3, No motor deficit (5/5 bilateral dorsi/plantarflexion, 5/5 hip flexion ), No sensory deficit (LTS intact and equal BLE), Other (2+/4 bilateral patellar DTR without clonus) Results - Vitals Vitals: Vital Signs - 24 hr 06/11/23 06/11/23 06/11/23 01:58 03:00 04:00 Temperature 35.9 C L Heart Rate 59 L 55 L 52 L Respiratory 18 16 16 Rate Blood Pressure 213/106 H 216/94 H 203/95 H O2 Saturation 96 98 97 06/11/23 06/11/23 06/11/23 05:00 05:30 06:30 Temperature Heart Rate 55 L 56 L 57 L Respiratory 16 16 16 Rate Blood Pressure 209/93 H 178/97 H 178/90 H O2 Saturation 97 95 98 06/11/23 06/11/23 06/11/23 07:00 07:30 08:37 Temperature 36.1 C L 36.0 C L Heart Rate 47 L 48 L 47 L Respiratory 15 16 16 Rate Blood Pressure 143/69 H 128/69 132/67 H O2 Saturation 96 96 96 Oxygen O2 Source Room air - Labs Labs: Laboratory Tests 06/11/23 06/11/23 06/11/23 03:38 03:41 03:41 WBC 9.6 RBC 4.73 Hgb 13.4 Hct 42.9 MCV 90.7 MCH 28.3 MCHC 31.2 L RDW 13.2 Plt Count 290 MPV 9.3 Neut # (Auto) 6.4 Lymph # (Auto) 2.0 [place] # (Auto) 0.7 Eos # (Auto) 0.5 Baso # (Auto) 0.1 Absolute Nucleated RBC 0.00 Nucleated RBC % 0.0 Sodium 138 Potassium 3.2 L Chloride 100 L Carbon Dioxide 30 Anion Gap 8.0 BUN 25 H Creatinine 0.9 Estimated GFR (MDRD) 64 L Glucose 100 Calcium 9.8 Total Bilirubin 0.5 AST 19 ALT 21 Alkaline Phosphatase 57 Total Protein 8.6 Albumin 4.6 Globulin 4.0 Albumin/Globulin Ratio 1.2 Lipase 65 Urine Color YELLOW Urine Clarity CLEAR Urine pH 6.0 Ur Specific [place] 1.015 Urine Protein NEGATIVE Urine Glucose (UA) NEGATIVE Urine Ketones NEGATIVE Urine Occult Blood SMALL H Urine Nitrite NEGATIVE Urine Bilirubin NEGATIVE Urine Urobilinogen 0.2 (NORMAL) Ur Leukocyte Esterase NEGATIVE Urine RBC 0-5 Urine WBC 6-10 H Ur Squamous Epith Cells FEW Squamous Urine Bacteria Rare Ur Microscopic Review INDICATED Urine Culture Comments NOT INDICATED - Rads (name of study) CT A/P with IV contrast Relevant Findings:: Prelim report reviewed, See rad report PD Medical Decision Making - ED course Complexity details: reviewed results, re-evaluated patient, considered differential, d/w patient ED course: There are no concerning findings on CBC, ER abdominal panel. Incidental note is made of mild hypokalemia (potassium 3.2). BUN is 25 with a 0.9 creatinine. UA has small red blood cells on macro, but none on microscopy although 6-10 white blood cells per high-power field are noted on microscopy. CT scan of the abdomen pelvis shows a right UPJ stone measuring 2 cm x 1.1 cm along with right-sided cortical thinning. During her ED stay, she developed severe right flank pain that responded well to 1 mg of IV Dilaudid. She was given a second dose later in her stay for recurrence of the right flank pain. She was also given 50 mg of IV Toradol. Unfortunately, the CT scan also shows, per radiologist, "solid mass arising from the lateral aspect of the left kidney, renal cell carcinoma is the diagnosis of exclusion. This measures 5.3 x 4.2 cm". Incidental note is made of cholelithiasis as well as nonspecific bilateral adrenal nodules and a nonspecific enhancing lesion of the left hepatic lobe that measures 1.4 cm. I discussed these results with the patient and her spouse (in the ED at patient's bedside). I explained that the right-sided kidney stone accounts for her back and flank pain. Given that adequate pain control was achieved with the above medications, she was discharged and I am providing a prescription for Percocet as well as Zofran (electronically submitted to [facility] pharmacy). Included in the discussion, of course, was the finding regarding a left kidney mass and the high suspicion for renal cell carcinoma. I advised her to contact her primary care provider today to inquire about appropriate referral for further investigation of this finding. Return precautions were reviewed. I am prescribing a short course of short-acting opioid pain medication for this patient. 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 I have discussed that the opioids are for short term therapy only, and will not be refilled from the ED. Departure - Departure Disposition: 01 Home, Self Care Clinical Impression: Renal colic on right side, Renal mass, left Condition: Good Instructions: ED Stone Renal W Colic Follow-Up: Yousif Dexter MD [Provider Admit Priv/Credential] - Prescriptions: Oxycodone HCl/Acetaminophen [Percocet 5-325 mg Tablet] 1 - 2 each PO Q6H PRN #20 tablet PRN Reason: pain Ondansetron Odt [Zofran Odt] 4 mg TL Q6H PRN #20 tablet PRN Reason: Nausea / Vomiting Comments: The CT scan of your abdomen pelvis shows a very large kidney stone lodged in the ureter on the right side; the ureter is the conduit from the kidney to the bladder. When kidney stones get stuck in the ureter, they cause the pain that you have been experiencing. As we discussed, this is an exceptionally large stone that will need to be removed by a urologist (it is far too large to pass on its own). Included in these discharge sheets is the contact information for the on-call urologist for [facility]. Contact that office to arrange for next available appointment. To help control the pain in the meantime, I have electronically submitted a prescription for Percocet (opiate/narcotic pain medication) to the [facility] pharmacy in [place]. I also submitted a prescription for ondansetron (anti-nausea medication). Unfortunately, the CT scan also has a very concerning finding: there is a solid mass on your left kidney. This is highly suspicious for renal cell carcinoma (kidney cancer). It is 5.3 cm x 4.2 cm. The diagnosis of cancer cannot be made solely on the basis of a CT scan. You will need follow-up for this finding separate from the urology follow-up for the kidney stone. Contact your primary care provider today to inquire about the referral process to have this finding addressed. I am prescribing a short course of narcotic pain medication for you. These are potentially dangerous and addictive medications that should be used carefully. These medications may constipate you. Take an qadl-[id number]-[id number] stool softener (docusate) twice daily with plenty of water while taking these medications. If you go 24 hours without a bowel movement, take [id number] miralax, per package instructions. Do not drink or drive while taking these medications. If you received narcotic or sedating medications while in the emergency department, do not drive for 24 hours. Store this medication in a safe, secure place and out of reach of children. It is a violation of federal law to give or sell this medication to another person or to use in a manner other than prescribed. The ED will not refill narcotic prescriptions, including prescriptions lost or stolen. To dispose of unwanted medications: 1. [facility] at [address] in [place] has a medication drop box. They accept prescription medications (in pill form) Friday through Friday 9:00 a.m. to 5:00 p.m. 2. The [facility] accepts prescription medications (in pill form only) for disposal year round. Call for more information. 3. Contact the [facility] for the next [facility] sponsored prescription drug collection event. , [phone], or [phone]; Forms: Activity restrictions Discharge Date/Time: 06/11/23 08:39
[2023-06-11] MEDS ORDERED: ONDANSETRON 4 MG/2 ML VIAL IVP STA (02:40)
[2023-06-11] MEDS ORDERED: cloNIDine 0.1 MG TABLET PO STA (02:52)
[2023-06-11 03:56] LABS: BASOPHILS # (AUTO) 0.1 10^3/uL (0.0-0.1); BASOPHILS % (AUTO) 0.7 %; EOSINOPHILS # (AUTO) 0.5 10^3/uL (0.0-0.7); EOSINOPHILS % (AUTO) 5.1 %; HCT - HEMATOCRIT 42.9 % (37.0-47.0); HGB - HEMOGLOBIN 13.4 g/dL (12.0-16.0); LYMPHOCYTES % (AUTO) 20.3 %; MEAN CORPUSCULAR HEMOGLOBIN 28.3 pg (27.0-31.0); MEAN CORPUSCULAR HGB CONC 31.2 g/dL (32.0-36.0); MEAN CORPUSCULAR VOLUME 90.7 fL (81.0-99.0); MEAN PLATELET VOLUME 9.3 fL (7.9-10.8); MONOCYTES # (AUTO) 0.7 10^3/uL (0.0-1.0); MONOCYTES % (AUTO) 7.2 %; NEUTROPHILS # (AUTO) 6.4 10^3/uL (1.5-6.6); NEUTROPHILS % (AUTO) 66.2 %; PLT - PLATELET COUNT 290 10^3/uL (130-450); RED BLOOD COUNT 4.73 10^6/uL (4.20-5.40); RED CELL DISTRIBUTION WIDTH 13.2 % (12.0-15.0); WHITE BLOOD COUNT 9.6 x10^3/uL (4.8-10.8)
[2023-06-11 03:57] LABS: BILIRUBIN,URINE NEGATIVE (NEGATIVE); GLUCOSE, URINE (UA) NEGATIVE (NEGATIVE); KETONES,URINE (UA) NEGATIVE (NEGATIVE); LEUKOCYTE ESTERASE, URINE NEGATIVE (NEGATIVE); NITRITE,URINE NEGATIVE (NEGATIVE); OCCULT BLOOD,URINE SMALL (NEGATIVE); PROTEIN,URINE NEGATIVE (NEGATIVE); UROBILINOGEN,URINE 0.2 (NORMAL) E.U./dL (NORMAL)
[2023-06-11 04:08] LABS: BACTERIA,URINE Rare /HPF (None Seen); CLARITY,URINE CLEAR (CLEAR); RBC,URINE 0-5 /HPF (0-5); SQUAMOUS EPITHELIAL CELL,UR FEW Squamous (<= Few)
[2023-06-11 04:14] LABS: ALBUMIN 4.6 g/dL (3.2-5.5); ALBUMIN/GLOBULIN RATIO 1.2 (1.0-2.2); BILIRUBIN,TOTAL 0.5 mg/dL (0.2-1.0); CALCIUM 9.8 mg/dL (8.5-10.3); CREATININE 0.9 mg/dL (0.6-1.3); POTASSIUM 3.2 mmol/L (3.5-4.5); TOTAL PROTEIN 8.6 g/dL (6.4-8.9)
[2023-06-11] MEDS ORDERED: HYDROmorphone 1 MG/ML CARPUJECT IVP STA ×2 (05:06→06:20)
[2023-06-11] MEDS ORDERED: SODIUM CHLORIDE 0.9% 1,000 ML IV STA (05:06)
[2023-06-11] MEDS ORDERED: KETOROLAC 15 MG/ML VIAL IVP STA (06:20)
[2023-06-11] MEDS ORDERED: iohexoL-300 100 ML VIAL IVP ONE (06:48)
[2023-06-11 07:14] VITALS: O2SAT 96
--- NOTE | 2023-06-11 08:22 | CT Report ---
PROCEDURE: ABDOMEN/PELVIS W INDICATIONS: RLQ/right flank/back pain CONTRAST: Omni 300 100ml TECHNIQUE: After the administration of intravenous contrast, 5 mm thick sections acquired from the diaphragms to the symphysis. 5 mm thick coronal and sagittal reformats were acquired. For radiation dose reducti on, the following was used: automated exposure control, adjustment of mA and/or kV according to sydnie ent size. COMPARISON: Ultrasound 07/09/2014 FINDINGS: Image quality: Excellent. Lung bases and heart: Unremarkable. Liver: Subcentimeter hypoattenuating liver lesions, too small to characterize by CT. Gallbladder and biliary tree: Cholelithiasis. Additional foci adherent to the gallbladder wall fundus , measuring 1.1 cm. Focal adenomyomatosis at the fundus. Spleen: No splenomegaly. Pancreas: No pancreatic ductal dilation. Adrenals: 1 cm right adrenal nodule 0.3 cm left adrenal nodule. Kidneys and ureters: Obstructing 1.1 cm stone right UPJ (830 Houn[address] unit), resulting in severe hy dronephrosis. Additional nonobstructing right-sided nephrolithiasis. 5.2 cm left renal mass along the lateral margin and 1.1 cm mass on the superior margin (series 2, image 24). Bowel and peritoneum: No bowel distension. No pathologic free fluid. Diverticulosis without evidence of diverticulitis. Normal appendix. Lymph nodes: No central or retroperitoneal adenopathy. Vessels: No infrarenal aortic aneurysm. PELVIS Reproductive organs: Unremarkable. Bladder: No abnormal wall thickening, accounting for underdistension. Pelvic lymph nodes: No pelvic adenopathy by size criteria. Bones: No aggressive osseous abnormality. Other: No significant ventral or inguinal hernia. IMPRESSION: Obstructing 1.1 cm stone in the right UVJ, resulting in severe hydronephrosis. Hyperattenuating left-sided renal masses, concerning for renal cell carcinoma. Recommend urology refe rral. Gallstone versus polyp adherent to the wall at the fundus. Recommend nonemergent right upper quadrant ultrasound for further characterization. Bilateral adrenal nodules. Further correlation with MRI or CT is recommended (nonemergent adrenal mas s protocol). Findings are concordant with preliminary interpretation provided by [facility]. Reviewed by: Ricky Escalante on 06/11/2023 8:20 AM [facility] Approved by: Ricky Escalante on 06/11/2023 8:20 AM PST Station ID: [id number]
[2023-06-11 08:45] VITALS: BP 132/67
== END 2023-06-11 08:39 | disposition home or self-care (01) ==
LOC: ED 01:37
DX: N13.2 Hydronephrosis with renal and ureteral calculous obstruction (principal); N28.89 Other specified disorders of kidney and ureter; K80.20 Calculus of gallbladder without cholecystitis without obstruction; E27.8 Other specified disorders of adrenal gland; R93.2 Abnormal findings on diagnostic imaging of liver and biliary tract
CPT/HCPCS: 36415; 74177; 80053; 81001; 83690; 85025; 96374; 96375; 96376; 99284; A9270; J1170; Q9967; 81003; 87086

== ENCOUNTER 2023-07-17 03:29 | Emergency (ER) | payer OTHER ==
[2023-07-17] MEDS ORDERED: MAGNESIUM CITRATE 296 ML BOTTLE PO STA (04:30)
[2023-07-17] MEDS ORDERED: SIMETHICONE CHEW 80 MG TABLET PO STA (04:31)
[2023-07-17] MEDS ORDERED: KETOROLAC 15 MG/ML VIAL IVP STA (04:31)
--- NOTE | 2023-07-17 04:35 | ED Physician Documentation ---
History of Present Illness - Stated complaint Stated Complaint: BACK/LEG/PELVIC PX - Chief complaint Chief Complaint: Abd Pain - History obtained from History obtained from: Patient, Family () - Additonal information Additional information: 62yF presents to the ED with multiple medical complaints. patient has PMH L renal mass and R UPJ stone with R nephrostomy placed on 07/07/23. patient has had good ostomy output since that time. denies fevers. she comes in tonight due to R mid/low back pain, abdominal bloating, and BL LE tingling. patient has had issues with tingling extremities before without explanation. she states she is prediabetic. she states she's been feeling constipated and tried multiple enemas without relief. 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 - Present Medications Home Medications: Ambulatory Orders Medication Instructions Recorded Confirmed Metoprolol Succinate 50 mg PO DAILY 11/28/16 07/17/23 Albuterol Sulf [Ventolin Hfa 1 - 2 puffs INH Q4HR PRN #1 each 06/27/22 Inhaler] Albuterol Sulfate [Proair 90 mcg INH PRN PRN 06/27/22 06/27/22 Digihaler] Benzonatate [Tessalon] 200 mg PO QID PRN #20 cap 06/27/22 Losartan Potassium 25 mg PO DAILY 06/27/22 07/17/23 Losartan [Cozaar] 50 mg PO DAILY #30 tablet 06/27/22 Sertraline [Zoloft] 100 mg PO DAILY 06/27/22 06/27/22 methylPREDNISolone [Medrol Dose 4 mg PO DAILY 06/27/22 06/27/22 Pack] oxyCODONE [Roxicodone] 5 - 10 mg PO Q6H PRN #20 tablet 07/05/22 Ondansetron Odt [Zofran Odt] 4 mg TL Q6H PRN #20 tablet 06/11/23 Oxycodone HCl/Acetaminophen 1 - 2 each PO Q6H PRN #20 tablet 06/11/23 [Percocet 5-325 mg Tablet] Amox/Clav 875/125 [Augmentin 1 tablet PO Q12H 10 Days #20 tablet 07/17/23 875/125 Tab] Sennosides/Docusate Sodium 1 each PO QDAC PRN #30 tablet 07/17/23 [Senna-Docusate Sodium Tablet] hydrOXYzine HCL [Hydroxyzine HCl] 25 mg PO QPM PRN #20 tablet 07/17/23 polyethylene glycoL 3350 [Miralax] 17 gm PO DAILY #15 packet 07/17/23 - Allergies Allergies/Adverse Reactions: Allergies Allergy/AdvReac Type Severity Reaction Status Date / Time No Known Drug Allergies Allergy Verified 06/11/23 05:19 - Social History Does the pt smoke?: No Smoking Status: Never smoker Does the pt drink ETOH?: No Does the pt have substance abuse?: No - Immunizations Immunizations are current?: Yes PD ED PE NORMAL - Vitals Vital signs reviewed: Yes - General General: Alert and oriented X 3, No acute distress, Well developed/nourished - HEENT HEENT: Atraumatic, PERRL, EOMI - Neck Neck: Supple, no meningeal sign - Cardiac Cardiac: RRR - Respiratory Respiratory: No respiratory distress, Clear bilaterally - Abdomen Abdomen: Non tender, Non distended - Rectal Rectal: Other (no stool in the rectal vault on JACKI) - Back Back: Other (R CVA ttp. R nephrostomy clean and in place) - Derm Derm: Normal color, Warm and dry - Extremities Extremities: No deformity - Neuro Neuro: Alert and oriented X 3 Results - Vitals Vitals: Vital Signs - 24 hr 07/17/23 07/17/23 07/17/23 03:35 03:54 05:54 Temperature 37.2 C Heart Rate 88 88 85 Respiratory 16 17 Rate Blood Pressure 174/99 H 175/90 H O2 Saturation 98 96 98 Oxygen O2 Source Room air - Labs Labs: Laboratory Tests 07/17/23 07/17/23 07/17/23 04:58 06:24 06:24 WBC 9.2 RBC 4.59 Hgb 12.9 Hct 40.0 MCV 87.1 MCH 28.1 MCHC 32.3 RDW 14.0 Plt Count 312 MPV 9.6 Neut # (Auto) 6.0 Lymph # (Auto) 2.1 [place] # (Auto) 0.8 Eos # (Auto) 0.2 Baso # (Auto) 0.1 Absolute Nucleated RBC 0.00 Nucleated RBC % 0.0 Sodium 135 Potassium 3.1 L Chloride 97 L Carbon Dioxide 24 Anion Gap 14.0 H BUN 32 H Creatinine 1.1 Estimated GFR (MDRD) 51 L Glucose 119 H Calcium 10.2 Total Bilirubin 0.6 AST 20 ALT 13 Alkaline Phosphatase 35 L Total Protein 7.7 Albumin 4.2 Globulin 3.5 Albumin/Globulin Ratio 1.2 Lipase 117 H Urine Color YELLOW Urine Clarity HAZY Urine pH 5.5 Ur Specific [place] 1.010 Urine Protein 100 H Urine Glucose (UA) NEGATIVE Urine Ketones NEGATIVE Urine Occult Blood LARGE H Urine Nitrite POSITIVE H Urine Bilirubin NEGATIVE Urine Urobilinogen 0.2 (NORMAL) Ur Leukocyte Esterase LARGE H Urine RBC TNTC H Urine WBC >25 H Ur Squamous Epith Cells FEW Squamous Urine Bacteria Many H Ur Microscopic Review INDICATED Urine Culture Comments INDICATED PD Medical Decision Making - ED course ED course: 62yF with R nephrostomy and L renal mass p/w constipation, abdominal and back pain, and BL leg tingling. cbc, abdominal panel, u/a ordered. IV toradol, oral mag citrate and gas X provided with improvement in symptoms. plan to f/u results. d/w Dr. Cho, urology. If otherwise hemodynamically stable and no s/s SIRS or sepsis then treat as complicated UTI. Bactrim or augmentin. Their urology office will f/u cultures. Scheduled for surgery with Dr. Jc Aug 04. She can follow up outpatient urology clinic. Departure - Departure Disposition: 01 Home, Self Care Clinical Impression: Constipation, Abdominal pain, Back pain, Tingling in extremities, UTI (urinary tract infection) Condition: Stable Instructions: ED Constipation Prescriptions: Amox/Clav 875/125 [Augmentin 875/125 Tab] 1 tablet PO Q12H 10 Days #20 tablet hydrOXYzine HCL [Hydroxyzine HCl] 25 mg PO QPM PRN #20 tablet PRN Reason: Insomnia polyethylene glycoL 3350 [Miralax] 17 gm PO DAILY #15 packet Sennosides/Docusate Sodium [Senna-Docusate Sodium Tablet] 1 each PO QDAC PRN #30 tablet PRN Reason: Constipation Comments: You were seen in the emergency department for constipation, back pain, abdominal pain and tingling feet. You have urinary tract infection on urinalysis. Antibiotics and sleep aid atarax (hydroxyzine) were sent electronically to [facility] in [place]. Please follow-up with your urologist and return to the emergency department if you have any new or worsening symptoms or other concerns. Forms: PCP List
[2023-07-17 05:09] LABS: BILIRUBIN,URINE NEGATIVE (NEGATIVE); GLUCOSE, URINE (UA) NEGATIVE (NEGATIVE); KETONES,URINE (UA) NEGATIVE (NEGATIVE); LEUKOCYTE ESTERASE, URINE LARGE (NEGATIVE); NITRITE,URINE POSITIVE (NEGATIVE); OCCULT BLOOD,URINE LARGE (NEGATIVE); PH,URINE 5.5 PH (5.0-7.5); PROTEIN,URINE 100 mg/dL (NEGATIVE); UROBILINOGEN,URINE 0.2 (NORMAL) E.U./dL (NORMAL)
[2023-07-17 05:16] LABS: CLARITY,URINE HAZY (CLEAR)
[2023-07-17 05:32] LABS: BACTERIA,URINE Many /HPF (None Seen); RBC,URINE TNTC /HPF (0-5); SQUAMOUS EPITHELIAL CELL,UR FEW Squamous (<= Few); WBC,URINE >25 /HPF (0-5)
[2023-07-17] MEDS ORDERED: cefTRIAXone 1 GM in SODIUM CHLORIDE 0.9% MINIBAG 100 ML IV STA (05:37)
[2023-07-17] MEDS ORDERED: cefTRIAXone 1 GM VIAL ONE (06:19)
[2023-07-17 06:39] LABS: BASOPHILS # (AUTO) 0.1 10^3/uL (0.0-0.1); BASOPHILS % (AUTO) 1.1 %; EOSINOPHILS # (AUTO) 0.2 10^3/uL (0.0-0.7); EOSINOPHILS % (AUTO) 1.6 %; HGB - HEMOGLOBIN 12.9 g/dL (12.0-16.0); LYMPHOCYTES # (AUTO) 2.1 10^3/uL (1.5-3.5); LYMPHOCYTES % (AUTO) 23.3 %; MEAN CORPUSCULAR HEMOGLOBIN 28.1 pg (27.0-31.0); MEAN CORPUSCULAR HGB CONC 32.3 g/dL (32.0-36.0); MEAN CORPUSCULAR VOLUME 87.1 fL (81.0-99.0); MEAN PLATELET VOLUME 9.6 fL (7.9-10.8); MONOCYTES # (AUTO) 0.8 10^3/uL (0.0-1.0); MONOCYTES % (AUTO) 8.5 %; NEUTROPHILS % (AUTO) 65.3 %; PLT - PLATELET COUNT 312 10^3/uL (130-450); RED BLOOD COUNT 4.59 10^6/uL (4.20-5.40); WHITE BLOOD COUNT 9.2 x10^3/uL (4.8-10.8)
[2023-07-17 07:00] LABS: ALBUMIN 4.2 g/dL (3.2-5.5); ALBUMIN/GLOBULIN RATIO 1.2 (1.0-2.2); BILIRUBIN,TOTAL 0.6 mg/dL (0.2-1.0); CALCIUM 10.2 mg/dL (8.5-10.3); CREATININE 1.1 mg/dL (0.6-1.3); POTASSIUM 3.1 mmol/L (3.5-4.5); TOTAL PROTEIN 7.7 g/dL (6.4-8.9)
[2023-07-17] MEDS ORDERED: POTASSIUM CHLORIDE 20 MEQ/15 ML UDC PO STA (07:03)
[2023-07-17 07:52] VITALS: BP 176/85
[2023-07-17 08:02] VITALS: O2SAT 97
== END 2023-07-17 08:13 | disposition home or self-care (01) ==
LOC: ED 03:29
DX: K59.00 Constipation, unspecified (principal); N39.0 Urinary tract infection, site not specified; R20.2 Paresthesia of skin; I10 Essential (primary) hypertension; E11.9 Type 2 diabetes mellitus without complications; Z79.899 Other long term (current) drug therapy
CPT/HCPCS: 36415; 80053; 81001; 83690; 85025; 87086; 96365; 96375; 99284; A9270; 81003

== ENCOUNTER 2023-12-05 15:21 | Emergency (ER) | payer OTHER ==
[2023-12-05 15:41] VITALS: O2SAT 100
--- NOTE | 2023-12-05 16:10 | ED Physician Documentation ---
History of Present Illness - Stated complaint Stated Complaint: GI,BILAT LEG PX - Chief complaint Chief Complaint: General - History obtained from History obtained from: Patient, Family - History of Present Illness Pain level max: 8 Pain level now: 8 - Additonal information Additional information: 63-year-old female states that she has a history of spinal cord tumor, status postresection approximately 3 months ago at [facility] in [place]. She states that she has had pain in her feet ever since that time. They have placed her on oxycodone for pain control but she does not like to take it because it makes her constipated. She states the main reason she came to the emergency department today is she felt like her Gaston catheter was causing pain 3 days ago and there was a small amount of blood. She is requesting that the catheter be changed. It has been draining normally since then. The blood was not in the urine but rather on the catheter. 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 - Present Medications Home Medications: Ambulatory Orders Medication Instructions Recorded Confirmed Metoprolol Succinate 50 mg PO DAILY 11/28/16 12/05/23 Losartan Potassium 25 mg PO DAILY 06/27/22 12/05/23 Losartan [Cozaar] 50 mg PO DAILY #30 tablet 06/27/22 12/05/23 Sertraline [Zoloft] 100 mg PO DAILY 06/27/22 12/05/23 methylPREDNISolone [Medrol Dose 4 mg PO DAILY 06/27/22 12/05/23 Pack] oxyCODONE [Roxicodone] 5 - 10 mg PO Q6H PRN #20 tablet 07/05/22 12/05/23 hydrOXYzine HCL [Hydroxyzine HCl] 25 mg PO QPM PRN #20 tablet 07/17/23 12/05/23 polyethylene glycoL 3350 [Miralax] 17 gm PO DAILY #15 packet 07/17/23 12/05/23 - Allergies Allergies/Adverse Reactions: Allergies Allergy/AdvReac Type Severity Reaction Status Date / Time No Known Drug Allergies Allergy Verified 12/05/23 15:39 - Social History Does the pt smoke?: No Smoking Status: Never smoker Does the pt drink ETOH?: No Does the pt have substance abuse?: No - Immunizations Immunizations are current?: Yes PD ED PE NORMAL - Vitals Vital signs reviewed: Yes - General General: Alert and oriented X 3, No acute distress - HEENT HEENT: Moist mucous membranes - Neck Neck: Supple, no meningeal sign - Cardiac Cardiac: RRR, Strong equal pulses - Respiratory Respiratory: No respiratory distress, Clear bilaterally - Abdomen Abdomen: Soft, Non tender, Non distended - Derm Derm: Warm and dry - Extremities Extremities: No edema, No calf tenderness / cord - Neuro Neuro: Alert and oriented X 3 Results - Vitals Vitals: Vital Signs - 24 hr 12/05/23 12/05/23 15:30 17:39 Temperature 36.8 C 36.8 C Heart Rate 107 H 87 Respiratory 16 16 Rate Blood Pressure 174/108 H 180/90 H O2 Saturation 100 100 Oxygen O2 Source Room air PD Medical Decision Making - ED course Complexity details: considered differential, d/w patient, d/w family ED course: 63-year-old female with what sounds like neuropathy in her feet status post spinal tumor resection. She has little to no sensation below the waist. Her Gaston catheter was changed. Given a dose of IM Dilaudid. Pain improved. She will continue her medications at home and follow-up with her doctor for further care regarding pain control. She is well-appearing, nontoxic. Patient and family counseled regarding signs and symptoms for which I believe and urgent re- evaluation would be necessary. Patient with good understanding of and agreement to plan and is comfortable going home at this time This document was made in part using voice recognition software. While efforts are made to proofread this document, sound alike and grammatical errors may occur. Departure - Departure Disposition: 01 Home, Self Care Clinical Impression: Neuropathy, Encounter for Gaston catheter replacement Condition: Good Instructions: ED Catheter Care Gaston, ED Neuropathy Peripheral Follow-Up: Donte Dominguez [Primary Care Provider] - Comments: Please follow-up with your doctor for further care. Your Gaston catheter was replaced today. You can contact your doctor to let him know that your neuropathic pain is not adequately controlled. They will be able to adjust your medications as they know your case better than I do. Forms: PCP List Discharge Date/Time: 12/05/23 17:40
[2023-12-05] MEDS: HYDROmorphone 1 MG/ML CARPUJECT IM STA (16:25)
[2023-12-05 17:44] VITALS: BP 180/90
== END 2023-12-05 17:40 | disposition home or self-care (01) ==
LOC: ED 15:21
DX: E11.42 Type 2 diabetes mellitus with diabetic polyneuropathy (principal); T83.84XA Pain due to genitourinary prosthetic devices, implants and grafts, initial encounter; Z98.890 Other specified postprocedural states; I10 Essential (primary) hypertension; G47.30 Sleep apnea, unspecified; Z86.69 Personal history of other diseases of the nervous system and sense organs
CPT/HCPCS: 51702; 96372; 99283; J1170

== ENCOUNTER 2024-01-05 13:56 | Emergency (ER) | payer OTHER ==
[2024-01-05] MEDS ORDERED: iohexoL-300 100 ML VIAL ONE (15:03)
[2024-01-05 15:11] LABS: BASOPHILS % (AUTO) 0.4 %; EOSINOPHILS # (AUTO) 0.2 10^3/uL (0.0-0.7); EOSINOPHILS % (AUTO) 2.5 %; HCT - HEMATOCRIT 32.5 % (37.0-47.0); HGB - HEMOGLOBIN 9.6 g/dL (12.0-16.0); LYMPHOCYTES # (AUTO) 1.9 10^3/uL (1.5-3.5); LYMPHOCYTES % (AUTO) 19.2 %; MEAN CORPUSCULAR HEMOGLOBIN 26.9 pg (27.0-31.0); MEAN CORPUSCULAR HGB CONC 29.5 g/dL (32.0-36.0); MEAN PLATELET VOLUME 9.2 fL (7.9-10.8); MONOCYTES # (AUTO) 0.8 10^3/uL (0.0-1.0); MONOCYTES % (AUTO) 8.6 %; NEUTROPHILS # (AUTO) 6.7 10^3/uL (1.5-6.6); NEUTROPHILS % (AUTO) 68.8 %; PLT - PLATELET COUNT 320 10^3/uL (130-450); RED BLOOD COUNT 3.57 10^6/uL (4.20-5.40); RED CELL DISTRIBUTION WIDTH 14.6 % (12.0-15.0); WHITE BLOOD COUNT 9.8 x10^3/uL (4.8-10.8)
[2024-01-05 15:44] LABS: ALBUMIN 3.4 g/dL (3.2-5.5); BILIRUBIN,TOTAL 0.5 mg/dL (0.2-1.0); CALCIUM 10.1 mg/dL (8.5-10.3); CREATININE 0.7 mg/dL (0.6-1.3); POTASSIUM 3.3 mmol/L (3.5-4.5); TOTAL PROTEIN 6.8 g/dL (6.4-8.9)
--- NOTE | 2024-01-05 15:59 | ED Physician Documentation ---
PD HPI SKIN - Stated complaint Stated Complaint: BACKEND WOUND - Chief complaint Chief Complaint: Wound - History obtained from History obtained from: Patient - Additional information Additional information: 63-year-old female with history of spinal cord tumor status postresection, paralyzed from the waist down presents for evolving wound on her buttocks. Patient receives wound care weekly, and on evaluation today the wound seem to be getting worse and so she was referred to the ER for evaluation. Patient has a hospital bed at home with a mattress pad on top, but has been at bedside states that they do not have any memory foam pads at home to bolster the patient. They are trying to frequently reposition the patient, but due to spasm pain in the lower extremity they have difficulty in successfully turning the patient at home. Review of Systems Constitutional: denies: Fever, Chills Respiratory: denies: Dyspnea, Cough, Wheezing GI: denies: Abdominal Pain, Nausea, Vomiting, Constipation : denies: Dysuria, Frequency, Hesitancy, Unable to Void Skin: reports: Rash. 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 - Present Medications Home Medications: Ambulatory Orders Medication Instructions Recorded Confirmed Metoprolol Succinate 50 mg PO DAILY 11/28/16 12/05/23 Losartan Potassium 25 mg PO DAILY 06/27/22 12/05/23 Losartan [Cozaar] 50 mg PO DAILY #30 tablet 06/27/22 12/05/23 Sertraline [Zoloft] 100 mg PO DAILY 06/27/22 12/05/23 methylPREDNISolone [Medrol Dose 4 mg PO DAILY 06/27/22 12/05/23 Pack] oxyCODONE [Roxicodone] 5 - 10 mg PO Q6H PRN #20 tablet 07/05/22 12/05/23 hydrOXYzine HCL [Hydroxyzine HCl] 25 mg PO QPM PRN #20 tablet 07/17/23 12/05/23 polyethylene glycoL 3350 [Miralax] 17 gm PO DAILY #15 packet 07/17/23 12/05/23 Sulfamethox/Trimeth 800/160 1 each PO BID 14 Days #28 tablet 01/05/24 [Bactrim Ds 800/160] - Allergies Allergies/Adverse Reactions: Allergies Allergy/AdvReac Type Severity Reaction Status Date / Time hydromorphone [From Dilaudid] AdvReac Nausea Verified 01/05/24 14:08 - Social History Does the pt smoke?: No Smoking Status: Never smoker Does the pt drink ETOH?: No Does the pt have substance abuse?: No - Immunizations Immunizations are current?: Yes PD ED PE NORMAL - Vitals Vital signs reviewed: Yes - General General: Alert and oriented X 3, No acute distress, Well developed/nourished - Cardiac Cardiac: RRR, Strong equal pulses - Respiratory Respiratory: No respiratory distress, Clear bilaterally - Derm Derm: Warm and dry, Other (palm-sized stage 3 pressure ulcer sacrum) - Extremities Extremities: No deformity, No tenderness to palpate - Neuro Neuro: Alert and oriented X 3, conference organizer 2-12 intact, Normal speech, Other (BLE paralysis, chronic) Results - Vitals Vitals: Oxygen O2 Source Room air - Labs Labs: Microbiology 01/05/24 18:40 Gram Stain - Final Buttock - Left Gram Stain Result 1 - Final Gram Stain Result 2 - Final Gram Stain Result 3 - Final Laboratory Tests 01/05/24 01/05/24 15:05 15:05 WBC 9.8 RBC 3.57 L Hgb 9.6 L Hct 32.5 L MCV 91.0 MCH 26.9 L MCHC 29.5 L RDW 14.6 Plt Count 320 MPV 9.2 Neut # (Auto) 6.7 H Lymph # (Auto) 1.9 Mcdonough # (Auto) 0.8 Eos # (Auto) 0.2 Baso # (Auto) 0.0 Absolute Nucleated RBC 0.00 Nucleated RBC % 0.0 Sodium 138 Potassium 3.3 L Chloride 101 Carbon Dioxide 29 Anion Gap 8.0 BUN 19 Creatinine 0.7 Estimated GFR (MDRD) 85 L Glucose 107 H Calcium 10.1 Total Bilirubin 0.5 AST 13 ALT 7 L Alkaline Phosphatase 56 Total Protein 6.8 Albumin 3.4 Globulin 3.4 Albumin/Globulin Ratio 1.0 PD Medical Decision Making - ED course Complexity details: reviewed old records, reviewed results, re-evaluated patient, considered differential, d/w patient, d/w family ED course: Patient presenting for buttock ulceration that has been progressing despite receiving drop in nursing care. at bedside is very concerned because last night it appeared that the area was very swollen. I do not appreciate any obvious fluctuance or drainage, however will order CT to assess both the wound and to see if there is any underlying abscess. and patient counseled on the importance of frequent position changes and using supportive bedding such as a crate or memory foam for offloading pressure from the wound. Laboratory work is reviewed,Hemoglobin 9.6, no recent priors for comparison. Kidney function within normal limits. Preliminary review of CT shows no obvious abscess or fluid collection, extensive soft tissue stranding. CT shows soft tissue stranding without abscess or osteomyelitis. Mepilex dressing applied by nursing staff. Patient and counseled on importance of frquent position changes to prevent worsening of sacral wound. Patient requested a change in her catheter due to pain around the catheter site. THis was done prior to patient departure. Departure - Departure Disposition: 01 Home, Self Care Condition: Stable Instructions: ED Pressure Injury Prescriptions: Sulfamethox/Trimeth 800/160 [Bactrim Ds 800/160] 1 each PO BID 14 Days #28 tablet Comments: Your CT today did not show any fluid collection or abscess. You do have a significant pressure ulcer on your sacral area and this does need to be closely monitored to make sure it does not worsen. Take all of your antibiotics as prescribed. It is very important that you have frequent position changes to make sure that you do not have prolonged pressure to your wound. RX sent to [facility] Forms: PCP List Discharge Date/Time: 01/05/24 18:35
[2024-01-05] MEDS: iohexoL-300 100 ML VIAL IVP ONE (16:54)
--- NOTE | 2024-01-05 17:02 | CT Report ---
PROCEDURE: Pelvis W INDICATIONS: WORSENING BUTTOCK WOUND, ABSCESS? CONTRAST: 100ml [id number] TECHNIQUE: After the administration of intravenous contrast, a CT scan of the pelvis was performed. Images were recorded and evaluated at appropriate window settings. Reformats: axial MIP of the chest, coronal an d sagittal. For radiation dose reduction, the following was used: automated exposure control, adjustm ent of mA and/or kV according to patient size. COMPARISON: MRI of lumbar spine dated 12/30/2023. CT of abdomen and pelvis dated 06/11/2023 FINDINGS: Image quality: Excellent. Bowel and peritoneum: No bowel distension. No pathologic free fluid. Vessels: No infrarenal aortic aneurysm. Reproductive organs: There is suggestion of prior hysterectomy suggest clinical correlation.. Bladder: Gaston catheter in decompressed urinary bladder is seen. Diffuse bladder wall thickening is l ikely present.. Pelvic lymph nodes: Subcentimeter lymph nodes are seen scattered in bilateral inguinal region measure s up to 8 mm in size in left inguinal region. Bones: No aggressive osseous abnormality. Other: Ulceration involving medial aspect of left gluteal region is seen with small amount of subcuta neous emphysema and extensive subcutaneous fat stranding. There is likely involvement of inferior and medial aspect of left gluteus navneet muscle. No discrete peripherally enhancing drainable fluid col lection is seen. IMPRESSION: 1. Ulceration involving medial aspect of left gluteal region with extensive underlying cellulitis and small amount of subcutaneous edema. No discrete drainable abscess collection is seen. Suggestion of myositis involving adjacent inferior medial portion of left gluteus navneet muscle without discrete i ntramuscular fluid collection or enhancing soft tissue mass. 2. Osteoarthritic changes throughout the bony pelvis. No acute fracture or dislocation. No CT evidenc e of osteomyelitis. 3. No pelvic free fluid of free air. No lymphadenopathy by size criteria. Gaston catheter in decompres sed urinary bladder with questionable bladder wall thickening suggests clinical correlation. Reviewed by: Geovanni Galeana MD on 01/05/2024 5:01 PM PDT Approved by: Geovanni Galeana MD on 01/05/2024 5:01 PM PDT Station ID: [id number]
[2024-01-05] MEDS: MORPHINE 2 MG/ML CARPUJECT IVP STA (17:46)
[2024-01-05 19:08] VITALS: BP 152/84; O2SAT 98
--- NOTE | 2024-01-12 13:00 | ED Physician Documentation ---
ED Addendum - Addendum Addendum: 01/12/24 12:59 Culture reviewed, it is Parvimonas Micra. Probably would not be susceptible to sulfa per my online research. Left voicemail for patient to call back. 01/12/24 13:10 Spoke with pt, not better and not worse. Rx for Pen VK 500mg PO qid #40 to [facility].
== END 2024-01-05 18:35 | disposition home or self-care (01) ==
LOC: ED 13:56
DX: L98.419 Non-pressure chronic ulcer of buttock with unspecified severity (principal); I10 Essential (primary) hypertension; E11.9 Type 2 diabetes mellitus without complications; Z79.899 Other long term (current) drug therapy
CPT/HCPCS: 36415; 51702; 72193; 80053; 85025; 96374; 99284; Q9967